=== PATIENT | female | born 1970 | race Caucasian/White ===

== ENCOUNTER → 2021-03-11 15:33 | Outpatient (BNVA) | payer BC, SELFPAY | PROVIDERS: Family Provider Nurse Practitioner; PCP Nurse Practitioner; Visit Provider Emergency Medicine | DX: N39.0 Urinary tract infection, site not specified (principal); R31.9 Hematuria, unspecified | CPT/HCPCS: 81000 ==

== ENCOUNTER → 2021-05-05 15:48 | Outpatient (BNVA) | payer BC, SELFPAY | PROVIDERS: Family Provider Nurse Practitioner; PCP Nurse Practitioner; Visit Provider Emergency Medicine | DX: U07.1 COVID-19 (principal) | CPT/HCPCS: 71046 ==

== ENCOUNTER 2025-05-04 22:31 | Emergency (ER) | payer BC, SELFPAY ==
[2025-05-04 22:42] VITALS: BP 173/90; PULSE 73; RESP 18; TEMP 36.9; O2SAT 96; BMI 48.0
--- OUTSIDE RECORDS SUMMARY | 2025-05-04 22:42 | XMS_ITS | Encounter Summary ---
Author Organization [email or web address] [facility] Address [address] [place] [address] Care Team Providers Care Spud Grader Name Role Phone Unavailable Primary Care Provider Unavailabl e Encounter Details Date Type Department Care Team (Latest Contact Info) Description 11/18/1997 Outpatient Historical [facility] Supervision of other normal (Primary Dx) Social History Tobacco Use Types Packs/Day Years Used Date Smoking Tobacco: Never Assessed Comments Unknown Sex and Gender Information Value Date Recorded Sex Assigned at Not on file Legal Sex Female 5:08 AM RESIDENTIAL TREATMENT SPECIALIST Gender Identity Not on file Sexual Orientation Not on file documented as of this encounter Plan of Treatment Not on file documented as of this encounter Visit Diagnoses Diagnosis Supervision of other normal - Primary documented in this encounter
--- OUTSIDE RECORDS SUMMARY | 2025-05-04 22:42 | XMS_ITS | Encounter Summary ---
Author Organization [employer] [facility] Address [address] [place] [address] Care Team Providers Care Health Sciences Program Coordinator Name Role Phone Unavailable Primary Care Provider Unavailabl e Encounter Details Date Type Department Care Team (Latest Contact Info) Description 01/12/1998 Outpatient Historical [facility] Supervision of other normal (Primary Dx) Social History Tobacco Use Types Packs/Day Years Used Date Smoking Tobacco: Never Assessed Comments Unknown Sex and Gender Information Value Date Recorded Sex Assigned at Not on file Legal Sex Female 5:08 AM MARSHMALLOW RUNNER Gender Identity Not on file Sexual Orientation Not on file documented as of this encounter Plan of Treatment Not on file documented as of this encounter Visit Diagnoses Diagnosis Supervision of other normal - Primary documented in this encounter
--- OUTSIDE RECORDS SUMMARY | 2025-05-04 22:42 | XMS_ITS | Encounter Summary ---
Author Organization [employer] [facility] Address [address] [place] [address] Care Team Providers Care Director Data Analytics Name Role Phone Unavailable Primary Care Provider Unavailabl e Encounter Details Date Type Department Care Team (Latest Contact Info) Description 12/16/1997 Outpatient Historical [facility] Supervision of other normal (Primary Dx) Social History Tobacco Use Types Packs/Day Years Used Date Smoking Tobacco: Never Assessed Comments Unknown Sex and Gender Information Value Date Recorded Sex Assigned at Not on file Legal Sex Female 5:08 AM HOSPITAL ADMINISTRATOR Gender Identity Not on file Sexual Orientation Not on file documented as of this encounter Plan of Treatment Not on file documented as of this encounter Visit Diagnoses Diagnosis Supervision of other normal - Primary documented in this encounter
--- OUTSIDE RECORDS SUMMARY | 2025-05-04 22:42 | XMS_ITS | Encounter Summary ---
Author Organization [employer] [facility] Address [address] [place] [address] Care Team Providers Care Telecommunications Field Engineer Name Role Phone Unavailable Primary Care Provider Unavailabl e Encounter Details Date Type Department Care Team (Latest Contact Info) Description 02/28/1998 Outpatient Historical [facility] Routine follow-up (Primary Dx); Other general counseling and advice for contraceptive management Social History Tobacco Use Types Packs/Day Years Used Date Smoking Tobacco: Never Assessed Comments Unknown Sex and Gender Information Value Date Recorded Sex Assigned at Not on file Legal Sex Female 5: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
--- OUTSIDE RECORDS SUMMARY | 2025-05-04 22:42 | XMS_ITS | Encounter Summary ---
Author Organization [facility] Address [address] [place] [address] Care Team Providers Care Batch Tester Name Role Phone Unavailable Primary Care Provider Unavailabl e Encounter Details Date Type Department Care Team (Latest Contact Info) Description 12/30/1997 Outpatient Historical [facility] Supervision of other normal (Primary Dx); Encounter for routine screening for malformation using ultrasonics; screening for growth retardation using ultrasonics Social History Tobacco Use Types Packs/Day Years Used Date Smoking Tobacco: Never Assessed Comments Unknown Sex and Gender Information Value Date Recorded Sex Assigned at Not on file Legal Sex Female 5:08 AM PROVIDER RELATIONS REPRESENTATIVE Gender Identity Not on file Sexual Orientation Not on file documented as of this encounter Plan of Treatment Not on file documented as of this encounter Visit Diagnoses Diagnosis Supervision of other normal - Primary Encounter for routine screening for malformation using ultrasonics screening for growth retardation using ultrasonics documented in this encounter
--- OUTSIDE RECORDS SUMMARY | 2025-05-04 22:42 | XMS_ITS | Encounter Summary ---
Author Organization [employer] [facility] Address [address] [place] [address] Care Team Providers Care Optics Engineer Name Role Phone Unavailable Primary Care Provider Unavailabl e Encounter Details Date Type Department Care Team (Latest Contact Info) Description 10/20/1997 Outpatient Historical [facility] Supervision of other normal (Primary Dx) Social History Tobacco Use Types Packs/Day Years Used Date Smoking Tobacco: Never Assessed Comments Unknown Sex and Gender Information Value Date Recorded Sex Assigned at Not on file Legal Sex Female 5:08 AM IN CLASSROOM TUTOR Gender Identity Not on file Sexual Orientation Not on file documented as of this encounter Plan of Treatment Not on file documented as of this encounter Visit Diagnoses Diagnosis Supervision of other normal - Primary documented in this encounter
--- OUTSIDE RECORDS SUMMARY | 2025-05-04 22:42 | XMS_ITS | Clinical Summary ---
Author Organization [employer] [facility] Address [address] Attn: Epic Prelude ADT [place] [address] Care Team Providers Care Water Quality Control Engineer Name Role Phone Unavailable Primary Care Provider Unavailabl e Social History Tobacco Use Types Packs/Day Years Used Date Smoking Tobacco: Never Assessed Comments Unknown Sex and Gender Information Value Date Recorded Sex Assigned at Not on file Legal Sex Female 5:08 AM TEACHER ASST Gender Identity Not on file Sexual Orientation Not on file Plan of Treatment Health Maintenance Due Date Last Done Comments DTAP/TDAP/TD VACCINES (1 - Tdap) 11/27/1990 HEPATITIS B VACCINES (1 of 3 - 19+ 3-dose series) 11/17 HPV/Cotest (21-29) 11/27/1992 CERVICAL CANCER SCREENING 11/27/2001 HPV/Cotest (30-65) 11/27/2001 PAP SMEAR 11/27/2001 02/28/1998 BREAST CANCER SCREENING 2011 COLORECTAL SCREENING 11/27/2016 Colorectal Cancer Screening 11/27/2016 FIT-DNA Q 3 years 11/27/2016 FIT/FOBT Q 1 year 11/27/2016 Flex Sig/CT Colonography Q 5 years 11/27/2016 ZOSTER VACCINE (1 of 2) 11/27/2021 INFLUENZA VACCINE (#1) 2024
--- OUTSIDE RECORDS SUMMARY | 2025-05-04 22:42 | XMS_ITS | Clinical Summary ---
Author Organization [facility] Address [address] [place] [address] Phone Care Team Providers Care Dramatic Coach Name Role Phone Unavailable Primary Care Provider Unavailabl e Allergies No known active allergies Medications methylPREDNISol one (MEDROL DOSPACK) 4 mg Tablets, Dose PackIndications :Cough As per pack directions 21 Tablet Active Active Problems No known active problems Social History Tobacco Use Types Packs/Day Years Used Date Smoking Tobacco: Never Smokeless Tobacco: Never Alcohol Use Standard Drinks/Week Comments Never 0 (1 standard drink = 0.6 oz pur e alcohol) Comments Unknown Sex and Gender Information Value Date Recorded Sex Assigned at Not on file Legal Sex Female 3:02 AM AUTO MACHINIST Gender Identity Not on file Sexual Orientation Not on file Last Filed Vital Signs Vital Sign Reading Time Taken Comments Blood Pressure 140/92 04/24/2021 9:19 AM AUTO MACHINIST Pulse 94 04/24/2021 9:19 AM AUTO MACHINIST Temperature 36.7 C (98 F) 04/24/2021 9:19 AM AUTO MACHINIST Respiratory Rate 22 04/24/2021 9:19 AM AUTO MACHINIST Oxygen Saturation 96% 04/24/2021 9:19 AM AUTO MACHINIST Inhaled Oxygen Concentration - - Weight 129.3 kg (285 lb) 04/24/2021 9:20 AM AUTO MACHINIST Height 162.6 cm (5' 4 ) 04/24/2021 9:20 AM AUTO MACHINIST Body Mass Index 48.92 04/24/2021 9:20 AM AUTO MACHINIST Plan of Treatment Upcoming Encounters Date Type Department Care Team (Late st Contact Info) Description 05/06/2025 2:30 PM AUTO MACHINIST Appointment [facility] [phone] [place] [address] Binta, Lane Tubbs MD [address] [place] [address] Health Maintenance Due Date Last Done Comments DTAP/TDAP/TD VACCINES (1 - Tdap) 11/27/1990 HEPATITIS B VACCINES (1 of 3 - 19+ 3-dose series) 11/17 HPV/Cotest (21-29) 11/27/1992 CERVICAL CANCER SCREENING 11/27/2001 HPV/Cotest (30-65) 11/27/2001 PAP SMEAR 11/27/2001 BREAST CANCER SCREENING 2011 COLORECTAL SCREENING 11/27/2016 Colorectal Cancer Screening 11/27/2016 FIT-DNA Q 3 years 11/27/2016 FIT/FOBT Q 1 year 11/27/2016 Flex Sig/CT Colonography Q 5 years 11/27/2016 ZOSTER VACCINE (1 of 2) 11/27/2021 INFLUENZA VACCINE (#1) 2024 Insurance [facility] PREFERRED
--- OUTSIDE RECORDS SUMMARY | 2025-05-04 22:42 | XMS_ITS | Encounter Summary ---
Author Organization [employer] [facility] Address [address] [place] [address] Care Team Providers Care Mechanical Integrity Engineer Name Role Phone Unavailable Primary Care [...] on file Legal Sex Female 5:08 AM PERFORATOR LOADER Gender Identity Not on file Sexual Orientation Not on file documented as of this encounter Plan of Treatment Not on file documented as of this encounter Visit Diagnoses Diagnosis Supervision of other normal - Primary documented in this encounter
--- OUTSIDE RECORDS SUMMARY | 2025-05-04 22:42 | XMS_ITS | Encounter Summary ---
Author Organization [email or web address] [facility] Address [address] [place] [address] Care Team Providers Care Gas Controller Name Role Phone Unavailable Primary Care Provider [...] on file Legal Sex Female 5:08 AM WEBSPHERE ARCHITECT Gender Identity Not on file Sexual Orientation Not on file documented as of this encounter Plan of Treatment Not on file documented as of this encounter Visit Diagnoses Diagnosis Supervision of other normal - Primary documented in this encounter
--- OUTSIDE RECORDS SUMMARY | 2025-05-04 22:42 | XMS_ITS | Encounter Summary ---
Author Organization [facility] Address [address] Attn: [place] [address] Care Team Providers Care Rigging And Controls Aircraft Mechanic Name Role Phone Unavailable Primary Care Provider Unavailabl e Encounter Details Date Type Department Care Team (Latest Contact Info) Description 01/18/2002 Emergency Garett Tripp, Berto Salmon DO NO ADDRESS ON FILE Social History Tobacco Use Types Packs/Day Years Used Date Smoking Tobacco: Never Assessed Comments Unknown Sex and Gender Information Value Date Recorded Sex Assigned at Not on file Legal Sex Female 5:08 AM GRINDING WHEEL INSPECTOR Gender Identity Not on file Sexual Orientation Not on file documented as of this encounter Plan of Treatment Not on file documented as of this encounter Visit Diagnoses Not on filedocumented in this encounter
--- OUTSIDE RECORDS SUMMARY | 2025-05-04 22:42 | XMS_ITS | Encounter Summary ---
Author Organization [facility] Address [address] [place] [address] Care Team Providers Care Outpatient Coding Specialist Name Role Phone Unavailable Primary Care Provider Unavailabl e Encounter Details Date Type Department Care Team (Latest Contact Info) Description 03/06/1999 Outpatient Historical [facility] Medicine [address], [place] [id number] Feliciano Siddiqui MD [address] [place] [address] Sprain thoracic region (Primary Dx); Sprain and strain of unspecified site of shoulder and upper arm Social History Tobacco Use Types Packs/Day Years Used Date Smoking Tobacco: Never Assessed Comments Unknown Sex and Gender Information Value Date Recorded Sex Assigned at Not on file Legal Sex Female 5:08 AM CAFE OPERATOR Gender Identity Not on file Sexual Orientation Not on file documented as of this encounter Plan of Treatment Not on file documented as of this encounter Visit Diagnoses Diagnosis Sprain thoracic region- Primary Sprain of thoracic region Sprain and strain of unspecified site of shoulder and upper arm documented in this encounter
--- OUTSIDE RECORDS SUMMARY | 2025-05-04 22:42 | XMS_ITS | Encounter Summary ---
Author Organization [facility] Address [address] [place] [address] Care Team Providers Care Inventory Technician Name Role Phone Unavailable Primary Care Provider Unavailabl e Encounter Details Date Type Department Care Team (Late st Contact Info) Description 02/19/2006 Emergency [facility] Emergency Department [address] [place] [id number] Nav Jaeger MD [address] [place] [address] Lumbago (Primary Dx) Social History Tobacco Use Types Packs/Day Years Used Date Smoking Tobacco: Never Assessed Comments Unknown Sex and Gender Information Value Date Recorded Sex Assigned at Not on file Legal Sex Female 5:08 AM RADIOLOGIC ELECTRONIC SPECIALIST Gender Identity Not on file Sexual Orientation Not on file documented as of this encounter Plan of Treatment Not on file documented as of this encounter Procedures Procedure Name Priority Date/Time Associated Diagnosis Comments XR LUMBAR SPINE 2 OR 3 VW Routine 02/19/2006 3:38 PM CDT documented in this encounter Results * XR LUMBAR SPINE 2 OR 3 VW (02/19/2006 3:38 PM CDT) Anatomical Region Laterality Modality Spine Other 02/19/2006 3:38 PM CDT Narrative 02/19/2006 3:38 PM CDT Lumbar Spine Dated 02/19/2006. History: Injury. Low back pain. The vertebral column is normally aligned. I see no definite fractures or subluxations. Minimal changesof spondylosis are present. There is a well corticated interruption of at least one of the parsinterarticularis at L4. I see no spondylolisthesis at this level. There is no evidence of bonedestruction. Based on these images I cannot exclude a transverse fracture of the left transverseprocess at L3. The SI joints are symmetrically patent. Impression: 1. Possible minimally displaced fracture of the left transverse process of L3.2. 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 3. Minimal changes of spondylosis. - Dictated By: Olena Cardoza M.D. Electronically Signed By: Olena Cardoza M.D. Date Signed: 02/20/06 AMA Procedure Note 04/08/2009 Lumbar Spine Dated 02/19/2006. History: Injury. Low back pain. The vertebral column is normally aligned. I see no definite fractures orsubluxations. Minimal changesof spondylosis are present. There is a well corticated interruption of atleast one of the parsinterarticularis at L4. I see no spondylolisthesis at this level.There is no evidence of bonedestruction. Based on these images I cannot exclude a transversefracture of the left transverseprocess at L3. The SI joints are symmetrically patent. Impression: 1. Possible minimally displaced fracture of the left transverse process ofL3.2. 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 3. Minimal changes of spondylosis. - Dictated By: Olena Cardoza M.D. Electronically Signed By: Olena Cardoza M.D. Date Signed: 02/20/06 AMA us E Rule [facility] DIAGNOST[facility] IMAGING ORDERABLES Fi nal Result documented in this encounter Visit Diagnoses Diagnosis Lumbago- Primary documented in this encounter
--- OUTSIDE RECORDS SUMMARY | 2025-05-04 22:42 | XMS_ITS | Encounter Summary ---
Author Organization [employer] [facility] Address [address] [place] [address] Care Team Providers Care Cotton Presser Name Role Phone Unavailable Primary Care Provider Unavailabl e Encounter Details Date Type Department Care Team (Latest Contact Info) Description 01/20/1998 Outpatient Historical [facility] Supervision of other normal (Primary Dx) Social History Tobacco Use Types Packs/Day Years Used Date Smoking Tobacco: Never Assessed Comments Unknown Sex and Gender Information Value Date Recorded Sex Assigned at Not on file Legal Sex Female 5:08 AM CHILD ADOLESCENT CARE Gender Identity Not on file Sexual Orientation Not on file documented as of this encounter Plan of Treatment Not on file documented as of this encounter Visit Diagnoses Diagnosis Supervision of other normal - Primary documented in this encounter
--- NOTE | 2025-05-04 22:50 | CTR_ITS ---
PROCEDURE INFORMATION: Exam: CT Abdomen And Pelvis With Contrast Exam date and time: 05/05/2025 12:10 AM Age: 54 years old Clinical indication: Abdominal pain; Prior surgery; Surgery date: 6+ months; Surgery type: C section; Additional info: Low abd pain, HX of pelvic prolpase, vag bleeding, chills TECHNIQUE: Imaging protocol: Computed tomography of the abdomen and pelvis with contrast. Radiation optimization: All CT scans at this facility use at least one of these dose optimization techniques: automated exposure control; mA and/or kV adjustment per patient size (includes targeted exams where dose is matched to clinical indication); or iterative reconstruction. Contrast material: OMNI 350; Contrast volume: 100 ml; Contrast route: INTRAVENOUS (IV); COMPARISON: CR XR chest 2V* [id number] 05/05/2021 4:03 PM RADIATION DOSE METRICS: Total DLP (mGy-cm): 1294.31 FINDINGS: Liver: Normal. No mass. Gallbladder and biliary ducts: Normal. No calcified stones. No ductal dilation. Pancreas: Normal. No ductal dilation. Spleen: Normal. No splenomegaly. Adrenal glands: Normal. No mass. Kidneys and ureters: No hydronephrosis or delayed nephrogram. Stomach and bowel: Diverticulosis, without acute diverticulitis. No small bowel obstruction. No free air. Appendix: No evidence of appendicitis. Intraperitoneal space: See Stomach and bowel finding. Vasculature: Unremarkable. No abdominal aortic aneurysm. Lymph nodes: Unremarkable. No enlarged lymph nodes. Urinary bladder: Unremarkable as visualized. Reproductive: Unremarkable as visualized. Bones/joints: Grade 1 anterolisthesis of L4 on L5, with bilateral pars defects at L4. Soft tissues: Unremarkable. CT/CT abdomen pelvis w con* [id number] IMPRESSION: No acute findings.
--- NOTE | 2025-05-04 23:04 | W.ED.FEMALGU ---
HPI - Female Genitourinary General: Chief complaint: Vaginal Bleeding Stated complaint: Stage 4 Vaginal Pro Laps Time Seen by Provider: 05/04/25 22:42 Source: patient Mode of arrival: ambulatory Limitations: no limitations History of Present Illness: Patient is a 54-year-old female presents emergency department stating that she has a stage IV vaginal prolapse and started having bright red bleeding. States that she went to urgent care a couple of days ago and was told that her uterus is dropping and she needs to follow-up with her business librarian. Family room states they looked up her symptoms and that she has a stage IV vaginal prolapse, and was told to come to the ED with any bleeding. States that she has been going through 1 pad every few hours and this is new, she has had some brown/rust colored bleeding but now it is bright red. Patient states she is now having a lot of pain in her lower abdomen, still has had pressure in her vagina but this has been unchanged and the new issue is her lower abdominal pain. She does note that currently she is being treated for a UTI and is on antibiotics, has had no decrease in urination and no significant dysuria. She is not endorsing any fevers but does state that she has been having chills. She feels nauseous but no vomiting. Vital stable at this time she is nontoxic-appearing. MD elicited complaint: vaginal bleeding and prolapse Onset (ago): day(s) Location of symptoms: external genitalia Associated symptoms: Reports abdominal pain and nausea; Deny headache(s) Related Data Home Medications ?Medication ?Instructions ?Recorded ?Confirmed fluvoxamine 150 mg mg PO 03/11/21 05/05/21 capsule,extended release 24 hr furosemide 20 mg tablet (Lasix) 10 mg PO QAM 03/11/21 05/05/21 losartan 50 mg tablet 50 mg PO DAILY 03/11/21 05/05/21 nebivolol 5 mg tablet (Bystolic) 5 mg PO DAILY 03/11/21 05/05/21 Previous Rx's ?Medication ?Instructions ?Recorded fluconazole 150 mg tablet 150 mg PO Q3D 2 doses #2 tabs 03/11/21 (Diflucan) hydrocodone 5 mg-acetaminophen 325 1 tab PO Q8H PRN pain #20 tabs 05/05/25 mg tablet ondansetron 4 mg disintegrating 4 mg PO TID PRN nausea and 05/05/25 tablet vomiting #30 tabs Allergies Allergy/AdvReac Type Severity Reaction Status Date / Time Penicillins Allergy hives Verified 05/04/25 22:45 Review of Systems General: Reports: 10 or more systems reviewed and unremarkable except in HPI and below Const: Reports: chills; Denies: fever(s), change in appetite, change in weight or diaphoresis ENMT: Denies: throat pain or hoarseness Card: Denies: chest pain, palpitations or lightheadedness Resp: Denies: dyspnea, productive cough or wheezing GI: Reports: abdominal pain and nausea; Denies: vomiting, diarrhea, constipation, bloating, change in stool character or hematochezia : Reports: vaginal bleeding and prolapse symptoms; Denies: flank pain, difficulty voiding, dysuria, urinary frequency or urinary urgency Musc: Denies: neck pain or back pain Skin/Breast: Denies: rash or new lesions Neuro: Denies: headache(s) or dizziness Physical Exam Const: COMMON NORMALS: no acute distress, patient oriented x3, no limitations, alert and well nourished GENERAL APPEARANCE: cooperative NUTRITIONAL APPEARANCE: obese morbidly obese ORIENTATION/CONSCIOUSNESS: Yes awake OTHER: Nontoxic-appearing Neck/C-Spine: COMMON NORMALS: full ROM, supple and no meningeal signs Resp: COMMON NORMALS: normal respiratory effort, No retractions, No use of accessory muscles and clear to auscultation bilaterally AUSCULTATION: clear to auscultation bilaterally, no crackles, no rales, no rhonchi and no wheezes Cardio: COMMON NORMALS: regular rate, regular rhythm, No gallops present (Cardio), No clicks present (Cardio), No murmurs present (Cardio) and No rub (Cardio) RATE: regular rate RHYTHM: regular rhythm GI: COMMON NORMALS: Soft to palpation and no masses INSPECTION: Yes central obesity AUSCULTATION: Yes normoactive bowel sounds PALPATION: Yes Soft to palpation, Yes Tenderness to palpation present (GI) Details: LLQ, RLQ and other (Suprapubic), No Guarding due to palpation present (GI) and No Rigid due to palpation RECTAL EXAM: deferred : COMMON NORMALS: Yes no CVA tenderness BLADDER/KIDNEY EXAM: Yes no CVA tenderness OTHER: Speculum exam showing normal external vaginal area. There is no protrusion through the introitus to indicate advanced stage prolapse. About 1 to 2 inches past the vaginal introitus there is a palpable and tender mass, with no signs of tissue necrosis or ischemia. There is presence of mild brownish bleeding. Back/Pelvis: COMMON NORMALS: no CVA tenderness Extremity: COMMON NORMALS: normal to inspection and full ROM Neuro: COMMON NORMALS: patient oriented x3, moves all extremities, no focal motor deficits and no sensory deficits noted SENSORIUM/ORIENTATION: Yes alert MENINGEAL SIGNS: Yes no meningeal signs Psych: COMMON NORMALS: mental status grossly normal, cooperative and speech normal SPEECH: Yes normal speech Skin: COMMON NORMALS: no rashes or lesions noted GENERAL SKIN EXAM: no rashes or lesions noted Course Vital Signs: Vital signs: Vital Signs Temperature 98.5 F 05/04/25 22:42 Pulse Rate 67 05/05/25 00:33 Respiratory Rate 18 05/04/25 22:42 Blood Pressure 134/67 05/05/25 00:33 Pulse Oximetry 96 05/05/25 00:33 Oxygen Delivery Me thod Room Air 05/05/25 00:33 MDM - Female Medical Decision Making Patient with a history of recent diagnosed possible vaginal prolapse, currently appearing reduced, presenting with lower abdominal pain and mild chills. Pelvic exam showing only mild internal prolapse with scant brownish bleeding and no protrusion. Labs are reassuring: CMP normal, CBC normal with mild reactive thrombocytosis, lactic 0.9, lipase mildly elevated at 106, and urinalysis showing red blood cells without bacteria or nitrites, consistent with contamination from vaginal bleeding rather than active UTI. Patient is hemodynamically stable with normal vital signs. Current symptoms are most consistent with partially treated infection or nonspecific abdominal pain; there is no evidence of sepsis, obstructive uropathy, or ischemic prolapse. CT abdomen pelvis rules out any other possible etiology or explanation for her symptoms. Patient will receive Cordova 5-325 mg for breakthrough pain as needed. Outpatient follow-up currently scheduled for with her OB, encouraging her to attend this and she will return with fever, worsening pain, heavy bleeding, urinary retention, recurrence of prolapse symptoms. Patient agrees with this plan at this time. Will continue to monitor her vitals and reassess Lab Data 05/04/25 23:17 05/04/25 23:17 Radiology Impressions Abdomen/Pelvis CT 05/04/25 22:50 IMPRESSION: No acute findings. Laboratory Results WBC 7.40 10^3/uL (3.29-11.43) 05/04/25 23:17 RBC 4.61 10^6/uL (3.85-5.65) 05/04/25 23:17 Hgb 12.20 g/dL (11.27-16.99) 05/04/25 23:17 Hct 39.8 % (36-47) 05/04/25 23:17 MCV 86.3 fl (85-98) 05/04/25 23:17 MCH 26.5 pg (27-33) L 05/04/25 23:17 MCHC 30.7 g/dL (30-55) 05/04/25 23:17 RDW 15.9 % (12.1-15.1) H 05/04/25 23:17 Plt Count 461 10^3/cmm (157-399) H 05/04/25 23:17 MPV 10.1 fL (7.4-10.4) 05/04/25 23:17 Neut % (Auto) 56.6 % 05/04/25 23:17 Lymph % (Auto) 29.9 % 05/04/25 23:17 [place] % (Auto) 11.2 % 05/04/25 23:17 Eos % (Auto) 1.5 % 05/04/25 23:17 Baso % (Auto) 0.5 % 05/04/25 23:17 Neut # (Auto) 4.19 10^3/uL (1.8-7.7) 05/04/25 23:17 Lymph # (Auto) 2.2 10^3/uL (0.8-4.8) 05/04/25 23:17 [place] # (Auto) 0.8 10^3/uL (0.2-0.9) 05/04/25 23:17 Eos # (Auto) 0.1 10^3/uL (0.0-0.8) 05/04/25 23:17 Baso # (Auto) 0.0 10^3/uL (0.0-0.1) 05/04/25 23:17 Nucleated RBC % (auto) 0 % 05/04/25 23:17 Nucleated RBCs # 0.0 /100WBC 05/04/25 23:17 Sodium 139 mmol/L (136-145) 05/04/25 23:17 Potassium 4.2 mmol/L (3.5-5.1) 05/04/25 23:17 Chloride 105 mmol/L (98-107) 05/04/25 23:17 Carbon Dioxide 22 mmol/L (22-29) 05/04/25 23:17 Anion Gap 16.2 (5-19) 05/04/25 23:17 BUN 16 mg/dL (6-20) 05/04/25 23:17 Creatinine 0.9 mg/dL (0.5-0.9) 05/04/25 23:17 GFR Calculation 65.5 mL/min (90-130) L 05/04/25 23:17 Glucose 88 mg/dL (65-115) 05/04/25 23:17 Calculated Osmolality 289 mOsm/kg (285-295) 05/04/25 23:17 Lactic Acid 0.9 mmol/L (0.5-2.2) 05/04/25 23:17 Calcium 8.6 mg/dL (8.5-10.5) 05/04/25 23:17 Total Bilirubin 0.2 mg/dL (0.15-1.2) 05/04/25 23:17 AST 17 U/L (0-32) 05/04/25 23:17 ALT 16 U/L (0-33) 05/04/25 23:17 Alkaline Phosphatase 72 U/L (35-105) 05/04/25 23:17 Total Protein 7.1 g/dL (6.6-8.7) 05/04/25 23:17 Albumin 4.1 g/dL (3.5-5.2) 05/04/25 23:17 Globulin 3.0 g/dL (1.3-4.6) 05/04/25 23:17 Lipase 106 U/L (13-60) H 05/04/25 23:17 Urine Color Yellow (Yellow) 05/04/25 23:25 Urine Appearance Clear (CLEAR) 05/04/25 23:25 Urine pH 5.5 (5-7) 05/04/25 23:25 Ur Specific [place] 1.018 (1.005-1.030) 05/04/25 23:25 Urine Protein Negative (Negative) 05/04/25 23:25 Urine Glucose (UA) Negative (Normal) 05/04/25 23:25 Urine Ketones Negative (Negative) 05/04/25 23: Urine Blood 3+ (Negative) A 05/04/25 23:25 Urine Nitrate Negative (Negative) 05/04/25 23:25 Urine Bilirubin Negative (Negative) 05/04/25 23:25 Urine Urobilinogen 1.0 mg/dL (Negative) 05/04/25 23:25 Ur Leukocyte Esterase Trace (Negative) A 05/04/25 23:25 Urine RBC >100 /hpf (0-2) H 05/04/25 23:25 Urine WBC 0-5 /hpf (0-5) 05/04/25 23:25 Ur Squamous Epith Cells 0-5 /hpf (0-5) 05/04/25 23:25 Amorphous Sediment Not Reportable 05/04/25 23:25 Urine Bacteria None seen /hpf (NONE) 05/04/25 23: Hyaline Casts 0-4 /lpf H 05/04/25 23:25 All radiology interpretation(s) finalized by discharge Discharge Plan Discharge Patient Disposition: Home Clinical Impression: Uterine prolapse Condition: Stable Prescriptions: New hydrocodone-acetaminophen 5-325 mg tablet 1 tab PO Q8H PRN (Reason: pain) Qty: 20 0RF ondansetron 4 mg tablet,disintegrating 4 mg PO TID PRN (Reason: nausea and vomiting) Qty: 30 0RF No Action fluvoxamine 150 mg capsule,extended release 24hr PO losartan 50 mg tablet 50 mg PO DAILY Bystolic 5 mg tablet 5 mg PO DAILY furosemide [Lasix] 20 mg tablet 10 mg PO QAM fluconazole [Diflucan] 150 mg tablet 150 mg PO Q3D 0 Days Qty: 2 1RF Rx Instructions: may repeat second dose 72 hrs after first dose if symptoms persist Discharge Orders: Discharge ED (Routine); Ordered 05/05/25 Ordered By: Alton Gaspar Referrals: Serena Chang FNP-C [Primary Care Provider, Nurse Practitioner] Patient Instructions: Patient Portal & Lila Instructions Activity Restrictions/Additional Instructions: Discharge Instructions DISCHARGE INSTRUCTIONS Your Diagnosis You were evaluated for vaginal bleeding and concerns about uterine prolapse. Your examination confirmed early-stage prolapse, not the advanced stage you were concerned about. All of your test results were normal, including blood work, urine tests, and CT scan of your abdomen and pelvis. What is Uterine Prolapse? Uterine prolapse occurs when the muscles and tissues supporting your uterus become weak, allowing the uterus to descend into the vaginal canal. Early-stage prolapse is common and can be managed without surgery in most cases. What to Expect With early-stage prolapse, you can be reassured that your condition is unlikely to worsen quickly. Studies show that only 10-20% of women experience progression of prolapse stage over 2 years with observation alone. Your prolapse stage may even improve or fluctuate over time. Treatment Plan 1. Observation: Since your prolapse is early-stage, watchful waiting is appropriate at this time. 2. Pelvic Floor Exercises: Daily pelvic floor muscle strengthening exercises may help improve your symptoms and slow progression of prolapse. Consider asking your business librarian about referral to pelvic floor physical therapy. 3. Lifestyle Modifications: - Maintain a healthy weight - Avoid heavy lifting when possible - Treat constipation with fiber supplementation if needed - Sitting with feet elevated may decrease bulge symptoms 4. Follow-up: You have an appointment scheduled with Obstetrics and Gynecology. They will discuss additional treatment options with you, which may include pessary devices (supportive devices placed in the vagina) or other interventions if your symptoms worsen. Medications 1. Hydrocodone-Acetaminophen 5 mg/325 mg - Take 1-2 tablets by mouth every 4-6 hours as needed for pain - Do not exceed 8 tablets in 24 hours - Do not drive or operate machinery while taking this medication - Avoid alcohol - May cause drowsiness, constipation, or nausea 2. Ondansetron - Take as directed for nausea - May cause headache or constipation RETURN TO THE EMERGENCY DEPARTMENT IMMEDIATELY IF YOU EXPERIENCE: - Heavy vaginal bleeding (soaking through more than one pad per hour for 2 consecutive hours) - Persistent bright red vaginal bleeding or passage of large blood clots - Severe abdominal or pelvic pain not relieved by prescribed pain medication - Fever greater than 100.4?F (38?C) - Inability to urinate or severe difficulty emptying your bladder - Severe constipation or inability to have a bowel movement - Dizziness, lightheadedness, or fainting - Chest pain or shortness of breath - Signs of infection: foul-smelling vaginal discharge, increasing pain, or redness - Worsening prolapse with tissue protruding outside the vagina that you cannot reduce - Any new or concerning symptoms Activity - Resume normal activities as tolerated - Avoid heavy lifting (greater than 10-15 pounds) for the next week - Avoid strenuous exercise until seen by your business librarian Follow-up - Obstetrics and Gynecology appointment: As scheduled - Keep this appointment even if you feel better - Bring a list of questions and concerns to discuss treatment options Additional Information Your vaginal bleeding has been evaluated and no concerning causes were identified. However, if bleeding persists or worsens, contact your business librarian or return to the emergency department. If you have questions or concerns before your follow-up appointment, contact your business librarian's office. 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
[2025-05-04 23:39] LABS: Hematocrit 39.8 % (36-47); Hemoglobin 12.20 g/dL (11.27-16.99); Mean Corpuscular HGB Conc 30.7 g/dL (30-55); Mean Corpuscular Hemoglobin 26.5 pg (27-33); Mean Corpuscular Volume 86.3 fl (85-98); Nucleated Red Blood Cells % 0 %; Platelet Count 461 10^3/cmm (157-399); Red Blood Count 4.61 10^6/uL (3.85-5.65); White Blood Count 7.40 10^3/uL (3.29-11.43)
[2025-05-04 23:46] VITALS: BP 137/91; PULSE 68; O2SAT 94
[2025-05-04 23:53] LABS: Alanine Aminotransferase 16 U/L (0-33); Albumin Level 4.1 g/dL (3.5-5.2); Alkaline Phosphatase 72 U/L (35-105); Anion Gap 16.2 (5-19); Aspartate Amino Transferase 17 U/L (0-32); Blood Urea Nitrogen 16 mg/dL (6-20); Calcium 8.6 mg/dL (8.5-10.5); Carbon Dioxide 22 mmol/L (22-29); Chloride 105 mmol/L (98-107); Globulin 3.0 g/dL (1.3-4.6); Glucose 88 mg/dL (65-115); Lipase 106 U/L (13-60); Osmolality Calculated 289 mOsm/kg (285-295); Potassium 4.2 mmol/L (3.5-5.1); Sodium 139 mmol/L (136-145); Total Protein 7.1 g/dL (6.6-8.7)
[2025-05-04 23:54] LABS: Glucose Urine UA Negative (Normal); Nitrate Urine Negative (Negative); Specific Gravity, Urine 1.018 (1.005-1.030)
[2025-05-04 23:54] LABS: Lactic Sepsis W/Reflex 0.9 mmol/L (0.5-2.2)
[2025-05-04 23:59] LABS: Add Urine Microscopic? YES
--- NOTE | 2025-05-05 00:18 | PC.NURSE ---
pt. returns from ct.
[2025-05-05] MEDS: iohexol 350 mg/mL 500 mL Btl (per mL) IV (00:21)
[2025-05-05 00:26] LABS: Slide Review Slide Review Perform
[2025-05-05 00:33] VITALS: BP 134/67; PULSE 67; O2SAT 96
[2025-05-05 01:04] VITALS: BP 134/67; PULSE 65; O2SAT 94
== END 2025-05-05 01:05 | disposition home or self-care (01) ==
PROVIDERS: Emergency Provider Physician Assistant; PCP Nurse Practitioner Family
DX: N81.4 Uterovaginal prolapse, unspecified (principal)
CPT/HCPCS: 36415; 74177; 80053; 81001; 83605; 83690; 85025; 87040; 87086; 99285